=== PATIENT | female | born 1965 | race Caucasian/White ===

== ENCOUNTER → 2018-02-02 | Outpatient (REF) ==
[2018-02-02 10:27] LABS: THYROID STIMULATING HORMONE 1.64 uIU/mL (0.465-4.680)
== END ==
LOC: ZLAB.WCH 09:10
PROVIDERS: Nurse Practitioner Family
DX: Z01.89 Encounter for other specified special examinations (principal)

== ENCOUNTER 2024-04-22 13:30 | Inpatient (IN) | payer BC ==
[~2024-04-22] VITALS: Ht 160 cm; Wt 74.2 kg
[2024-04-22] VITALS (280 sets, daily range): BP systolic 129–156; BP diastolic 81–90; PULSE 112; TEMP 97.5; O2SAT 74–100
[2024-04-22] MEDS ORDERED: NS 1,000 ML IV ONE ×2 (14:15→16:15)
[2024-04-22 14:28] LABS: HEMOGLOBIN 16.7 g/dl (12.5-16.0); MEAN CELL VOLUME 92 fl (80.0-100.0); MEAN CORPUSCULAR HEMOGLOBIN 29 pg (27-31); MEAN CORPUSCULAR HGB CONC 32 g/dl (33.0-37.0); MEAN PLATELET VOLUME 9.1 fl (7.4-10.4); PLATELET COUNT 612 K/mm3 (130-400); RED BLOOD COUNT 5.75 M/mm3 (4.10-5.30); REDCELL DISTRIBUTION WIDTH-CV 13.3 % (11.5-14.5)
[2024-04-22] MEDS ORDERED: Ondansetron 4 MG/2 ML VIAL IV ONE (14:30)
[2024-04-22 14:40] LABS: HEMATOCRIT 52.6 % (37.0-47.0)
[2024-04-22 14:47] LABS: ALBUMIN 3.6 g/dL (3.4-4.8); BILIRUBIN,TOTAL 0.6 mg/dL (0.2-1.2); CALCIUM 9.8 mg/dL (8.4-10.2); CREATININE, serum 0.86 mg/dL (0.57-1.11); POTASSIUM 5.1 mEq/L (3.5-4.5)
[2024-04-22 14:55] LABS: TROPONIN-I 0.918 ng/mL (0.00-0.033)
[2024-04-22] MEDS ORDERED: Iohexol 300 - 100 ML VIAL IV ONE (14:55)
[2024-04-22 15:01] LABS: BAND 12 % (0-10); LYMPHOCYTE 7 % (20.0-51.0); NEUTROPHILS 79 % (42.0-75.2)
[2024-04-22 15:52] LABS: COLLECTION METHOD CLEAN CATCH; URINE APPEARANCE Clear (CLEAR/HAZY); URINE COLOR Yellow (YELLOW)
[2024-04-22 15:53] LABS: URINE BLOOD 3+ (NEGATIVE); URINE GLUCOSE 2+ (NEGATIVE); URINE KETONE 4+ (NEGATIVE); URINE NITRATE Negative (NEGATIVE); URINE PROTEIN(semi-quant) 2+ (NEGATIVE); URINE UROBILINOGEN 0.2 E.U/dL (0.2-1.0)
[2024-04-22 16:55] LABS: INR 1.1 (0.8-3.0); PROTHROMBIN TIME 12.1 SECONDS (9.7-12.8)
[2024-04-22 16:57] LABS: ALANINE AMINOTRANSFERASE 836 U/L (0-55); ALBUMIN 3.6 g/dL (3.4-4.8); ALKALINE PHOSPHATASE 64 U/L (40-150); AST,SGOT 582 U/L (5-34); BILIRUBIN,TOTAL 0.5 mg/dL (0.2-1.2); TOTAL PROTEIN 8.1 g/dl (6.2-8.1)
[2024-04-22 17:02] LABS: BILIRUBIN,DIRECT 0.3 mg/dL (0.0-0.5)
[2024-04-22] MEDS ORDERED: ZYRTEC 10MG10 MG PO (17:10)
[2024-04-22] MEDS ORDERED: OZEMPIC0.25 MG/02 SQ (17:11)
[2024-04-22] MEDS ORDERED: LIPITOR 40MG TA40 MG PO (17:11)
[2024-04-22] MEDS ORDERED: JARDIANCE25 PO (17:11)
[2024-04-22] MEDS ORDERED: Insulin Human Regular/NS 100 ML IV SCH (17:15)
[2024-04-22] MEDS ORDERED: Ondansetron 4 MG/2 ML VIAL IV PRN (17:15)
[2024-04-22] MEDS ORDERED: D5 1/2 NS 1,000 ML IV SCH ×2 (17:30→20:30)
[2024-04-22] MEDS ORDERED: NS 1,000 ML IV SCH ×2 (17:30→20:30)
--- NOTE | 2024-04-22 17:30 | NUR ---
Report received from MARION Gutierrez at 1705. Pt arrived to ICU room 1 at 1730 via ER cart with MARION Gutierrez at bedside. Monitors attached to pt during transfer. Pt transferred from ER cart to ICU bed via SBA. ICU monitors attached to pt at this time. VSS. Pt denies pain or discomfort. Pt complains of "feeling weak and slightly short of breath". IV insulin and fluids attached to pt at this time to L AC IV. Alyx RN, Asha RN, and this RN attemped to obtain a second IV site with no luck. Dr. Stanton notified and gave orders for a central line placement. Dr. Desouza called for central line insertion and stated he would be to ICU shortly to complete procedure. and two daughters at bedside with pt.
[2024-04-22] MEDS ORDERED: GLUCOPHAGE XR500 M1 PO (17:47)
[2024-04-22] MEDS ORDERED: Aspirin 325 MG TAB PO ONE (18:00)
[2024-04-22] MEDS ORDERED: Dextrose 50% Water 25 GM/50 ML SYRINGE IV PRN (18:00)
--- NOTE | 2024-04-22 20:00 | NUR ---
AT BEDSIDE PLACING A CENTRAL LINE. PT HAD A SHORT RUN OF V-TACH DURING PLACEMENT. DR WAS NOTIFIED. PT REMAINED STABLE. PT STATES SHE FEELS WEAK. FAMILY WAS AT BEDSIDE, BUT HAS GONE HOME FOR THE NIGHT. PT WAS AMBULATED WITH ASSIST OF 2 TO THE TOILET. PURWICK WAS PLACED UPON RETURN. DR ANDRADE WAS CALLED REGARDING BLOOD SUGAR AND CURRENT INSULIN RATE. THIS NURSE REQUESTED DOCTOR REVIEW CXR FOR CORRECT CENTRAL LINE PLACEMENT.
[2024-04-22 20:18] LABS: BLOOD UREA NITROGEN 15 mg/dL (10-20); CALCIUM 7.6 mg/dL (8.4-10.2); CHLORIDE 118 mEq/L (98-107); CREATININE, serum 0.76 mg/dL (0.57-1.11); GLUCOSE 269 mg/dL (70-99); POTASSIUM 4.1 mEq/L (3.5-4.5); SODIUM 139 mEq/L (136-145)
[2024-04-22] MEDS ORDERED: cefTRIAXone 1 G in Water For Injection,Sterile 10 ML IV SCH (21:00)
[2024-04-22] MEDS ORDERED: Acetaminophen 500 MG TAB PO PRN (21:00)
[2024-04-22 21:29] LABS: CALCIUM 7.3 mg/dL (8.4-10.2); CREATININE, serum 0.7 mg/dL (0.57-1.11); POTASSIUM 3.6 mEq/L (3.5-4.5)
[2024-04-22] MEDS ORDERED: *Potassium Replacement Protocol MC SCH (22:00)
[2024-04-22] MEDS ORDERED: Magnesium Sulfate 4% 50 ML IV ONE (22:15)
[2024-04-22] MEDS ORDERED: Potassium Chloride 100 ML IV SCH (22:30)
[2024-04-22 23:31] LABS: CALCIUM 7.5 mg/dL (8.4-10.2); CREATININE, serum 0.68 mg/dL (0.57-1.11); POTASSIUM 3.3 mEq/L (3.5-4.5)
[2024-04-23] VITALS (1062 sets, daily range): BP systolic 111–157; BP diastolic 68–90; PULSE 105–123; TEMP 97.4–98.2; O2SAT 94–100
[2024-04-23] MEDS ORDERED: Potassium Chloride 100 ML IV SCH ×3 (01:00→21:15)
[2024-04-23 01:38] LABS: CALCIUM 7.4 mg/dL (8.4-10.2); CREATININE, serum 0.62 mg/dL (0.57-1.11); POTASSIUM 3.6 mEq/L (3.5-4.5)
--- NOTE | 2024-04-23 03:16 | NUR ---
PT RECEIVED 12.5 GM D50 AT 0013, 0200 & 0315 FOR BLOOD SUGAR LESS THAT 150.
[2024-04-23 03:34] LABS: CALCIUM 7.4 mg/dL (8.4-10.2); CREATININE, serum 0.61 mg/dL (0.57-1.11); POTASSIUM 4.1 mEq/L (3.5-4.5)
--- NOTE | 2024-04-23 03:39 | NUR ---
THIRD BAG OF THE 60 mEq POTASSIUM STOPPED. LAST K+ WAS 4.1.
[2024-04-23 05:59] LABS: BASO % 0.2 % (0.0-2.0); EOS % 0.3 % (0.0-4.0); GRAN # 11.4 K/mm3 (1.4-6.5); GRAN % 82.6 % (42.2-75.2); HEMATOCRIT 38.8 % (37.0-47.0); LYMPH # 1.5 K/mm3 (1.2-3.4); MEAN CORPUSCULAR HGB CONC 34 g/dl (33.0-37.0); MEAN PLATELET VOLUME 8.6 fl (7.4-10.4); MONO # 0.8 K/mm3 (0.1-0.6); MONO % 5.5 % (1.7-9.3); RED BLOOD COUNT 4.51 M/mm3 (4.10-5.30); REDCELL DISTRIBUTION WIDTH-CV 13.5 % (11.5-14.5)
[2024-04-23 06:01] LABS: HEMOGLOBIN 13.1 g/dl (12.5-16.0); MEAN CELL VOLUME 86 fl (80.0-100.0); MEAN CORPUSCULAR HEMOGLOBIN 29 pg (27-31); PLATELET COUNT 374 K/mm3 (130-400)
[2024-04-23 06:33] LABS: BILIRUBIN,TOTAL 0.3 mg/dL (0.2-1.2); MAGNESIUM 1.9 mg/dL (1.6-2.6)
[2024-04-23 06:42] LABS: TSH w REFLEX 4.485 uIU/mL (0.350-4.940)
[2024-04-23 07:02] LABS: TROPONIN-I 0.526 ng/mL (0.00-0.033)
[2024-04-23 07:05] LABS: CALCIUM 7.6 mg/dL (8.4-10.2); CREATININE, serum 0.63 mg/dL (0.57-1.11); POTASSIUM 3.8 mEq/L (3.5-4.5)
--- NOTE | 2024-04-23 07:05 | NUR ---
REMAINS STABLE ON ROUNDS. NO SIGN OF DISTRESS AT THIS TIME.
[2024-04-23 07:27] LABS: CALCIUM 7.7 mg/dL (8.4-10.2); CREATININE, serum 0.62 mg/dL (0.57-1.11); POTASSIUM 3.7 mEq/L (3.5-4.5)
--- NOTE | 2024-04-23 07:35 | NUR ---
THIS NURSE RECIEVED BEDSIDE REPORT. PATIENT STARING OFF, BUT ALERT AND ORIENTED. PATIENT HAS INSULIN INFUSING AT 4 UNITS PER HOUR. PATIENT RESTING COMFORTABLY. IV FLUIDS INFUSING PER DOCTORS ORDERS. BED IN LOW POSITION AND CALL LIGHT WITHIN REACH.
[2024-04-23] MEDS ORDERED: Cetirizine 10 MG TAB PO SCH (09:00)
[2024-04-23 09:40] LABS: CALCIUM 7.9 mg/dL (8.4-10.2); CREATININE, serum 0.59 mg/dL (0.57-1.11); POTASSIUM 4.1 mEq/L (3.5-4.5)
[2024-04-23] MEDS ORDERED: Polyethylene Glycol 3350 17 GM PDS PO SCH (11:14)
[2024-04-23] MEDS ORDERED: Insulin Glargine-ygfn (Lantus) SQ SCH ×2 (11:19→21:00)
[2024-04-23] MEDS ORDERED: Dextrose 50% Water 25 GM/50 ML SYRINGE IV PRN (11:30)
[2024-04-23] MEDS ORDERED: Dextrose (Glucose) 15 GM (4 x 3.75 GM) Chewable TABLET PACK PO PRN (11:30)
[2024-04-23] MEDS ORDERED: LR 1,000 ML IV SCH (11:30)
[2024-04-23] MEDS ORDERED: Glucagon 1 MG VIAL IM PRN (11:30)
[2024-04-23 11:48] LABS: CALCIUM 7.8 mg/dL (8.4-10.2); CREATININE, serum 0.6 mg/dL (0.57-1.11)
--- NOTE | 2024-04-23 11:56 | NUR ---
Data: Spiritual Care visit attempted twice. First time Doctor was with Patient and Visitor. Second Patient was indisposed. Assessment: None at this time. Plan of Care: Chaplains will remain available as needed/requested while Patient is admitted to this hospital.
[2024-04-23] MEDS ORDERED: Insulin Lispro (HumaLOG) SQ SCH (12:00)
--- NOTE | 2024-04-23 14:06 | NUR ---
INSULIN DRIP SHUT OFF AT THIS TIME, FOLLOWING TWO HOURS SINCE ADMINISTRATION OF LONG-ACTING INSULIN AND DOCTORS ORDERS. PATIENT TOLERATING TREATMENT WELL. RESTING COMFORTABLY WITH BED IN LOW POSITION AND CALL LIGHT WITHIN REACH.
--- NOTE | 2024-04-23 15:43 | NUR ---
SW met with patient to complete initial assessment for discharge planning. Patient verified that she lives in [place] with her Matthew ([phone]). Patient denies having DPOA completed and states her will make decisions for her if needed. Patient sees Dr. Anila Craft as her PCP and uses [facility]. Patient denies having any DME and states she is independent with all activities. Patient plans to return home at discharge. Discharge plan: Home
--- NOTE | 2024-04-23 16:16 | NUR ---
PATIENT HAS BEEN STRESSING OVER NOT HAVING A BOWEL MOVEMENT. TALKED TO DR. POWELL WHILE SHE WAS MAKING ROUNDS AND ASKED FOR MIRALAX AND COLACE. PATIENT HAD A DOSE OF MIRALAX AROUND 1200, AND HAD A SMALL AMOUNT OF BOWEL MOVEMENT AT THIS TIME. PATIENT EXPRESSED A SENSE OF RELIEF AND IS GOING TO TRY TO NAP. BED IS IN LOW POSITION AND CALL LIGHT IS WITHIN REACH.
[2024-04-23 16:18] LABS: CALCIUM 8.4 mg/dL (8.4-10.2); CREATININE, serum 0.55 mg/dL (0.57-1.11)
--- NOTE | 2024-04-23 19:00 | NUR ---
AND DAUGHTER AT THE BEDSIDE. PT IS WATCHING THE [employer] PRESEASON GAME. DENIES SOB, PAIN, N/V. STATES SHE FEELS BETTER TODAY. ASKED PT IF SHE WOULD LIKE TO SIT IN THE CHAIR. PT DECLINED. STATES SHE DOESN'T THINK SHE WOULD BE COMFORTABLE. NO SIGN OF DISTRESS AT THIS TIME. RESPIRATIONS EVEN AND UNLABORED. CONTINUE PLAN OF CARE.
--- NOTE | 2024-04-23 19:06 | NUR ---
PATIENT IS ALERT AND ORIENTED X4. PATIENT'S AND DAUGHTER ARE IN THE ROOM. PATIENT IS RESTING COMFORTABLY. PATIENT ONLY ATE ABOUT 30% OF HER DINNER TONIGHT. PATIENT HAS BEEN TO THE TOILET MULTIPLE TIMES, WITH ONLY ONE SMALL BOWEL MOVEMENT AT THIS TIME. PATIENT WAS STRESSING OVER THE FACT OF NOT HAVING A BOWEL MOVEMENT. PATIENT REASSURED THAT THIS IS NORMAL, AND THAT SHE HAS MEDICATION ON BOARD THAT SHOULD START TO HELP, BUT SHE HAS TO EAT THINGS, TO BE ABLE TO PASS A BOWEL MOVEMENT, EFFECTIVELY. PATIENT IN BED, BED IN LOW POSITION, CALL LIGHT WITHIN REACH. GAVE REPORT TO MARION HAMPTON.
[2024-04-23 20:40] LABS: CALCIUM 8.5 mg/dL (8.4-10.2); CREATININE, serum 0.54 mg/dL (0.57-1.11); POTASSIUM 3.7 mEq/L (3.5-4.5)
[2024-04-23] MEDS ORDERED: Docusate Sodium 100 MG CAP PO SCH (21:00)
--- NOTE | 2024-04-23 21:25 | NUR ---
PT AMBULATED IN THE [place] WITH ASSIST OF 1 AND GAIT BELT. PT WENT TO THE NURSES STATION AND BACK. PT HAS A WEAK GAIT. PT HAS GENERALIZED WEAKNESS. PT HAS A CATARACT ON RIGHT EYE. PT STATES SHE CAN NOT SEE OUT OF THAT EYE. CO2 IS 12. ORDER IN PLACE NOT TO CALL UNLESS TRENDING DOWN. K+ 3.7. WILL REPLACE.
[2024-04-24] VITALS (551 sets, daily range): BP systolic 107–167; BP diastolic 71–110; PULSE 111–126; TEMP 97.6–98.7; O2SAT 87–99
--- NOTE | 2024-04-24 00:56 | NUR ---
PT C/O FILLING LIKE SHE HAS TO URINATE ALL THE TIME. PT HAS URINATED 1100 ML THIS SHIFT. BLADDER PALPATED AND WAS FIRM. BLADDER SCAN PERFORMED. INDICATED GREATER THAT 900 ML. PROVIDER CONTACTED AND ORDER FOR STRAIGHT CATH RECEIVED. CATH PLACED. PT INDICATED SHE FELT MUCH BETTER.
[2024-04-24 04:38] LABS: CALCIUM 8.5 mg/dL (8.4-10.2); CREATININE, serum 0.47 mg/dL (0.57-1.11); POTASSIUM 3.9 mEq/L (3.5-4.5)
--- NOTE | 2024-04-24 05:14 | NUR ---
PT HAS URINARY RETENTION. CATH WAS PLACED OVERNIGHT. LEFT IN PLACE FOR BLADDER TRAINING. TUBING CLAMPED FOR 2 HOURS AT A TIME. THEN UNCLAMPED TO DRAIN. WILL DISCONTINUE AT 0600.
--- NOTE | 2024-04-24 06:33 | NUR ---
URINARY CATH REMOVED WITH OUT INCIDENT. PROVIDER NOTIFIED THAT PT HAD URINARY RETENTION AND WAS BLADDER TRAINED OVERNIGHT. RESPIRATIONS EVEN AND UNLABORED. PT IS ST 100 TO 120'S. PT HAS SLEEP APNEA. BLOOD PRESSURE WAS ELEVATED PRIOR TO URINARY CATH PLACEMENT. DISCUSSED WITH PROVIDER THAT PT HAS POOR COORDINATION. PER PROVIDER WILL PLACE ADD ON LAB FOR A PHOSPHORUS LEVEL.
--- NOTE | 2024-04-24 07:22 | NUR ---
THIS NURSE RECIEVED BEDSIDE REPORT. PATIENT RESTING COMFORTABLY. BED IN LOW POSITION AND CALL LIGHT WITHIN REACH.
[2024-04-24 09:12] LABS: CALCIUM 8.5 mg/dL (8.4-10.2); CREATININE, serum 0.47 mg/dL (0.57-1.11); POTASSIUM 3.8 mEq/L (3.5-4.5)
--- NOTE | 2024-04-24 10:14 | NUR ---
PATIENT USED THE RESTROOM AND ONLY VOIDED ABOUT 70 MLS. THIS NURSE BLADDER SCANNED POST VOID, AND BLADDER SCAN SHOWED APPROXMATELY 500 ML LEFT IN THE PAITENT'S BLADDER. PATIENT'S ABDOMEN IS SOFT UPON PALPATION WITH NO TENDERNESS. PATIENT STATES SHE WILL CALL IF THE URGE TO VOID OCCURS, OR IF PAIN BEGINS IN THE ABDOMEN. BED IN LOW POSITION, CALL LIGHT WITHIN REACH.
[2024-04-24] MEDS ORDERED: Potassium Bicarbonate/Citrate 20 MEQ Effervescent TAB PO ONE (10:45)
--- NOTE | 2024-04-24 11:55 | NUR ---
LATIA revisited patient to inquire about self pay status on chart. Patient states that she just changed jobs and her insurance terminated. She states that her added her to his policy on Thursday with [employer]. LATIA sent email to financial counselor to follow up on this coverage. LATIA notified by Dr. Yoon that patient will require rehab before going home. LATIA discussed with patient who is agreeable. Medicare.gov list of area SNFs provided. Patient requested referral to [facility], [facility] faxed per request. Discharge plan: SB vs SNF
[2024-04-24 12:39] LABS: CALCIUM 8.5 mg/dL (8.4-10.2); CREATININE, serum 0.45 mg/dL (0.57-1.11); POTASSIUM 3.6 mEq/L (3.5-4.5)
[2024-04-24 16:34] LABS: CALCIUM 8.5 mg/dL (8.4-10.2); CREATININE, serum 0.45 mg/dL (0.57-1.11); POTASSIUM 3.6 mEq/L (3.5-4.5)
--- NOTE | 2024-04-24 18:42 | NUR ---
PATIENT IS RESTING COMFORTABLY IN HER BED. PATIENT HAD NEW LINENS PLACED AND A CLEAN GOWN PUT ON. PATIENT IS SHOWING GREAT STRENGTH IMPROVEMENT FROM YESTERDAY. PATIENT STABLY WALKING TO THE TOILET AND BACK. PATIENT HAS SCDS HOOKED UP, BED IS IN LOW POSITION, AND CALL LIGHT IS WITHIN REACH.
--- NOTE | 2024-04-24 19:42 | NUR ---
PT STATES SHE FEELS LIKE SHE IS EMPTYING HER BLADDER. PT STATES SHE DOES NOT WANT ANYMORE STOOL SOFTENERS. PT VOIDED 100 ML AND HAD A MED LOOSE BM. PT AMBULATED 100 YARDS WITH FRONT WHEEL WALKER AND GAIT BELT. PT STATES SHE FEELS WEAK AND TIRED. PT WILL BE NPO AFTER MN FOR CORNELL SCAN IN MORNING.
--- NOTE | 2024-04-24 20:00 | NUR ---
PT UP VOIDING. WILL BLADDER SCAN AFTER TO EVALUATE FOR URINARY RETENTION.
--- NOTE | 2024-04-24 20:18 | NUR ---
PT HAS VOIDED 100 ML X2 THIS SHIFT. POST VOID RESIDUAL PERFORMED. PT HAS GREATER THAT 800ML IN BLADDER. PROVIDER CALLED. ORDER TO PLACE WARD RECEIVED. 16 FR WARD WITH 10 ML BALOON PLACED. PT TOLERATED PROCEDURE WELL. IMMEDIATE RETURN OF CLEAR YELLOW URINE.
[2024-04-24 20:30] LABS: CALCIUM 8.6 mg/dL (8.4-10.2); CREATININE, serum 0.49 mg/dL (0.57-1.11); POTASSIUM 3.4 mEq/L (3.5-4.5)
[2024-04-25] VITALS (37 sets, daily range): BP systolic 106–149; BP diastolic 69–85; PULSE 80–128; TEMP 97.6–98.1; O2SAT 92–97
[2024-04-25 04:41] LABS: BASO # 0.1 K/mm3 (0.0-0.2); BASO % 0.9 % (0.0-2.0); EOS # 0.2 K/mm3 (0.0-0.7); EOS % 2.1 % (0.0-4.0); GRAN # 5.2 K/mm3 (1.4-6.5); GRAN % 64.8 % (42.2-75.2); HEMATOCRIT 37.5 % (37.0-47.0); HEMOGLOBIN 12.8 g/dl (12.5-16.0); LYMPH # 2.1 K/mm3 (1.2-3.4); LYMPH % 25.5 % (20.0-51.0); MEAN CELL VOLUME 84 fl (80.0-100.0); MEAN CORPUSCULAR HEMOGLOBIN 29 pg (27-31); MEAN CORPUSCULAR HGB CONC 34 g/dl (33.0-37.0); MEAN PLATELET VOLUME 8.8 fl (7.4-10.4); MONO # 0.5 K/mm3 (0.1-0.6); MONO % 6.5 % (1.7-9.3); PLATELET COUNT 310 K/mm3 (130-400); RED BLOOD COUNT 4.46 M/mm3 (4.10-5.30); REDCELL DISTRIBUTION WIDTH-CV 13.5 % (11.5-14.5)
--- NOTE | 2024-04-25 04:57 | NUR ---
PT IS GOING FOR A PROCEDURE THIS MORNING. PROTONIX GIVEN EARLY WITH A SIP OF WATER. PT BG POC WAS 71. PT FELT LIKE HER BLOOD SUGAR WAS A LITTLE LOW. GIVEN 12.5 GM OF D50.
[2024-04-25 05:28] LABS: CALCIUM 8.5 mg/dL (8.4-10.2); CREATININE, serum 0.44 mg/dL (0.57-1.11); POTASSIUM 3.2 mEq/L (3.5-4.5)
[2024-04-25] MEDS ORDERED: Potassium Chloride 100 ML IV SCH (06:30)
--- NOTE | 2024-04-25 06:37 | NUR ---
POTASSIUM 3.2 THIS MORNING. REPLACEMENT IN PROGRESS. PT'S BLOOD SUGAR WNL ON RECHECK. PT NPO SINCE MIDNGHT FOR CORNELL SCAN TODAY. REMAINS STABLE ON ROUNDS. RESPIRATIONS EVEN AND UNLABORED. NO SIGN OF DISTRESS AT THIS TIME. CONTINUE PLAN OF CARE.
--- NOTE | 2024-04-25 07:10 | NUR ---
THIS NURSE RECIEVED REPORT FROM MARION HAMPTON. PATIENT IS RESTING COMFORTABLY IN BED. PATIENT BE PREPPED TO GO DOWN FOR A LEXISCAN AT THIS TIME.
[2024-04-25] MEDS ORDERED: Insulin Glargine-ygfn (Lantus) SQ SCH (09:00)
--- NOTE | 2024-04-25 09:35 | NUR ---
DR. ARANGO TALKING TO PATIENT AFTER ECHO. TRANSPORTATION TO THE [facility] ARRIVED DURING THIS CONVERSATION. PATIENT THEN TRANSPORTED TO HER SCAN. BED RECIEVED FOR PATIENT UP ON MEDICAL. PATIENT AWARE. REPORT CALLED TO 319 NURSE. PATIENT'S BELONGINGS TAKEN UP TO NEW ROOM.
[2024-04-25] MEDS ORDERED: Regadenoson 0.08 MG/ML 5 ML SYRINGE IV SCH (09:58)
--- NOTE | 2024-04-25 10:30 | NUR ---
PATIENT ADMITED INTO ROOM 319, ICU TRANSFER. A&O. NOTED ELEVATED HR IN MID 100'S TO 120'S ON TELE, ALL OTHER VSS. IV FLUIDS INFUSING INTO RIJ. WARD TO DD WITH MOD AMOUNTS OF HAZY URINE NOTED. PATIENT HAS IMPAIRED MOBILITY AND REQUIRES 1-2 ASSIST. PT/OT CONSULTED. NPO FOR LEXISCAN THAT PATIENT JUST FINISHED. BS WAS 82, NO SSI REQUIRED. HEAD TO TOE ASSESSMENT COMPLETE. ORIENTED TO ROOM. CALL LIGHT IN REACH. NOW AT BEDSIDE.
--- NOTE | 2024-04-25 11:10 | NUR ---
CARDIOLOGY CALLED AND CONFIRMED PATIENT CAN NOW HAVE AN AHA DIET, PATIENT SHOWN HOW TO ORDER. NO OTHER NEEDS AT THIS TIME.
--- NOTE | 2024-04-25 14:00 | NUR ---
PATIENT AMBULATING IN HALLS WITH PT. TOLERATING ACTIVITY WELL. SEE PT NOTES.
--- NOTE | 2024-04-25 20:30 | NUR ---
UPON SHIFT ASSESSMENT, PATIENT WAS AWAKE IN BED AND AXO X4. BG HAVE BEEN WNL AND WARD IS DRAINING PALE-YELLOW, CLEAR URINE. VS ARE WNL WITH THE EXCEPTION OF TELE EXHIBITING SINUS TACK AT 98 BPM. PATIENT DENIES CHEST PAIN OR SOA AT THIS TIME RT IJ IS CDI WITH TRIPLE LUMENS THAT FLUSH AND HAVE BLOOD RETURN. STATES NO NEEDS AT THIS TIME. EDUCATION WAS PROVIDED ON SIGNG AND SYMPTOMS OF HYPOGYLCEMIA, CALL LIGHT WITHIN REACH, BED ALARM ON.
[2024-04-26] VITALS (11 sets, daily range): BP systolic 112–124; BP diastolic 56–78; PULSE 94–103; TEMP 97.4–97.9
--- NOTE | 2024-04-26 06:41 | NUR ---
PATIENT HAS HAD NO EMERGENT STATUS CHANGES THROUGHOUT THE NIGHT. SHE REMAINS SINUS TACH ON TELE @ 99 BPM. BLOOD GLUCOSE HAS BEEN WNL. PATIENT DENIES ANY NEEDS AT THIS TIME.
[2024-04-26 07:05] LABS: BASO # 0.1 K/mm3 (0.0-0.2); BASO % 0.6 % (0.0-2.0); EOS # 0.2 K/mm3 (0.0-0.7); EOS % 2.3 % (0.0-4.0); GRAN # 5.2 K/mm3 (1.4-6.5); GRAN % 66.4 % (42.2-75.2); HEMATOCRIT 37.4 % (37.0-47.0); HEMOGLOBIN 12.7 g/dl (12.5-16.0); LYMPH # 1.9 K/mm3 (1.2-3.4); LYMPH % 24.5 % (20.0-51.0); MEAN CELL VOLUME 86 fl (80.0-100.0); MEAN CORPUSCULAR HEMOGLOBIN 29 pg (27-31); MEAN CORPUSCULAR HGB CONC 34 g/dl (33.0-37.0); MEAN PLATELET VOLUME 9.2 fl (7.4-10.4); MONO # 0.5 K/mm3 (0.1-0.6); MONO % 5.9 % (1.7-9.3); PLATELET COUNT 287 K/mm3 (130-400); RED BLOOD COUNT 4.35 M/mm3 (4.10-5.30); REDCELL DISTRIBUTION WIDTH-CV 13.4 % (11.5-14.5)
[2024-04-26 07:30] LABS: CALCIUM 8.5 mg/dL (8.4-10.2); POTASSIUM 3.4 mEq/L (3.5-4.5)
[2024-04-26 07:42] LABS: CREATININE, serum 0.4 mg/dL (0.57-1.11)
[2024-04-26] MEDS ORDERED: Potassium Bicarbonate/Citrate 20 MEQ Effervescent TAB PO SCH (08:00)
--- NOTE | 2024-04-26 08:15 | NUR ---
PT ALERT AND RESTING IN BED. MEDS GIVEN PER ORDER. HEAD TO TOE ASSESSMENT COMPLETE. CENTRAL LINE TO RIGHT IJ. URINE OUTPUT IN WARD BAG LIGHT PINK AND CLEAR. PT STATES SHE HAS SEVERE WEAKNESS AND INCREADING NECK WEAKNESS. PT IS LEGALLY BLIND IN LEFT EYE. PT DENIES ANY PAIN. ALL ITEMS WITHIN REACH. REPOSITIONED IN BED. CALL LIGHT WITHIN REACH. NO FURTHER NEEDS.
--- NOTE | 2024-04-26 11:19 | NUR ---
Clinical Research Physician met with patient to review PT recommendation for IPR. Patient stated she would prefer to stay here on IPR if possible. SW contacted Rachel, IPR Director and gave referral.
--- NOTE | 2024-04-26 13:56 | NUR ---
D: Population Health Coach stopped in room on rounds. A: Pt was resting and content with family and friends in the room. Pt has no needs right now. P: Population Health Coach informed pt that if she needed anything from the collar band creaser area to let her nurse know. Population Health Coach will follow up as needed.
--- NOTE | 2024-04-26 21:00 | NUR ---
UPON SHIFT ASSESSMENT, PATIENT WAS AWAKE IN BED AND AXO X4. WARD DRAINING PALE YELLOW. PATIENT DENIES PAIN OR SOA AT THIS TIME. VS ARE WNL WITH EXCEPTION OF SINUS TACH AT 102 BPM ON TELE. BLOOD GLUCOSE WNL. PATIENT EAGERLY ANTICIPATES REHAB AND WANTS TO, "BE ABLE TO GET UP ON MY OWN."
[2024-04-27 01:00] VITALS: BP_SYST 124
[2024-04-27 03:20] VITALS: BP 105/70; PULSE 93; TEMP 97.7
[2024-04-27 06:14] VITALS: BP_SYST 105
[2024-04-27 06:41] LABS: BASO # 0.1 K/mm3 (0.0-0.2); BASO % 0.8 % (0.0-2.0); EOS # 0.1 K/mm3 (0.0-0.7); EOS % 1.8 % (0.0-4.0); GRAN # 4.9 K/mm3 (1.4-6.5); GRAN % 63.3 % (42.2-75.2); HEMATOCRIT 37.6 % (37.0-47.0); HEMOGLOBIN 12.6 g/dl (12.5-16.0); LYMPH # 2.2 K/mm3 (1.2-3.4); MEAN CELL VOLUME 87 fl (80.0-100.0); MEAN CORPUSCULAR HEMOGLOBIN 29 pg (27-31); MEAN CORPUSCULAR HGB CONC 34 g/dl (33.0-37.0); MONO # 0.5 K/mm3 (0.1-0.6); PLATELET COUNT 308 K/mm3 (130-400); RED BLOOD COUNT 4.31 M/mm3 (4.10-5.30); REDCELL DISTRIBUTION WIDTH-CV 13.5 % (11.5-14.5)
[2024-04-27 06:59] LABS: CALCIUM 8.5 mg/dL (8.4-10.2); CREATININE, serum 0.41 mg/dL (0.57-1.11); POTASSIUM 3.5 mEq/L (3.5-4.5)
[2024-04-27 07:34] VITALS: BP 112/74; PULSE 95; TEMP 98
--- NOTE | 2024-04-27 08:30 | NUR ---
PATIENT ALERT AND ORIENTED X4. PATIENT ON ROOM AIR. PATIENT ON TELEMETRY.PATIENT WARD DRAINING DEVENDRA COLOR URINE. PATIENT REPORTS WEAKNESS IS STILL IN ABDOMEN AND GROIN.PATIENT CALL LIGHT WITHIN REACH. BED AT LOWEST POSITION.
[2024-04-27 09:00] VITALS: BP_SYST 112
[2024-04-27] MEDS ORDERED: Insulin Glargine-ygfn (Lantus) SQ SCH (09:00)
[2024-04-27] MEDS ORDERED: TOPROL XL 25MG25 MG PO (09:15)
[2024-04-27] MEDS ORDERED: ASPIRIN E.C. 8181 MG PO (09:16)
[2024-04-27] MEDS ORDERED: INSLANT SQ (09:16)
[2024-04-27] MEDS ORDERED: INSULIN AS100 UNIT/2 SQ (09:17)
--- NOTE | 2024-04-27 10:52 | NUR ---
PATIENT TRANSPORTED TO [facility]. TELE STILL INPLACE. WARD INPLACE. PATIENT REPORT GIVEN TO NURSE RECEIVING PATIENT.
--- NOTE | 2024-04-27 13:32 | NUR ---
Patient accepted to [facility] and will discharge today.
== END 2024-04-27 10:53 | DRG 637 ==
LOC: COL.ER 13:30 → ICU 16:30 → COL.ER 16:30 → MEDICAL 16:30 → ICU 04-25 10:27 → MEDICAL 04-25 10:27
PROVIDERS: Internal Medicine; Physician Assistant; ADMIT Internal Medicine
PROC: 02HV33Z Insertion of Infusion Device into Superior Vena Cava, Percutaneous Approach (ICD-10-PCS; principal; 2024-04-22)
DX: E09.10 Drug or chemical induced diabetes mellitus with ketoacidosis without coma (principal); I21.A1 Myocardial infarction type 2; G72.81 Critical illness myopathy; M62.82 Rhabdomyolysis; B17.9 Acute viral hepatitis, unspecified; E87.5 Hyperkalemia; D72.829 Elevated white blood cell count, unspecified; R74.01 Elevation of levels of liver transaminase levels; T50.905A Adverse effect of unspecified drugs, medicaments and biological substances, initial encounter; R33.9 Retention of urine, unspecified; E78.5 Hyperlipidemia, unspecified; Z79.899 Other long term (current) drug therapy
CPT/HCPCS: A4314; A9500-JZ; J0696; J1815; J2405; J2543; J2785; J3475; J3480; J7030; J7120; Q9967

== ENCOUNTER 2024-04-27 08:47 | Inpatient (IN) | payer BC ==
[~2024-04-27] VITALS: Ht 160 cm; Wt 71.7 kg
[~2024-04-27 08:47] MED LIST: GLUCOPHAGE XR500 M1 PO; JARDIANCE25 PO; LIPITOR 40MG TA40 MG PO; OZEMPIC0.25 MG/02 SQ; ZYRTEC 10MG10 MG PO
[2024-04-27] MEDS ORDERED: TOPROL XL 25MG25 MG PO (09:15)
[2024-04-27] MEDS ORDERED: INSLANT SQ (09:16)
[2024-04-27] MEDS ORDERED: ASPIRIN E.C. 8181 MG PO (09:16)
[2024-04-27] MEDS ORDERED: INSULIN AS100 UNIT/2 SQ (09:17)
[2024-04-27] MEDS ORDERED: Acetaminophen 325 MG TAB PO PRN (11:15)
[2024-04-27] MEDS ORDERED: Naloxone 0.4 MG/ML VIAL IV PRN (11:15)
[2024-04-27] MEDS ORDERED: Docusate Sodium 100 MG CAP PO PRN (11:15)
[2024-04-27] MEDS ORDERED: Sennosides/Docusate 8.6-50 MG TAB PO PRN (11:15)
[2024-04-27] MEDS ORDERED: Polyethylene Glycol 3350 17 GM PDS PO PRN (11:15)
[2024-04-27] MEDS ORDERED: Glucagon 1 MG VIAL IM PRN (12:00)
[2024-04-27] MEDS ORDERED: Dextrose (Glucose) 15 GM (4 x 3.75 GM) Chewable TABLET PACK PO PRN (12:00)
[2024-04-27] MEDS ORDERED: Dextrose 50% Water 25 GM/50 ML SYRINGE IV PRN (12:00)
[2024-04-27] MEDS ORDERED: Insulin Lispro (HumaLOG) SQ SCH (12:00)
--- NOTE | 2024-04-27 14:35 | NUR ---
LATIA met with patient, and daughter to complete initial assessment for discharge planning. Patient finishing getting a shower with OT, LATIA visited with family. Patient lives with Matthew ([phone]) in [place], sees Dr. Anila Craft as her PCP and uses [facility] [facility]. Patient does not have any DME at home. stated there are two steps into home from their garage and rest of home is one level. Patient's office is in basement, but states they will relocate it to main floor as patient works remotely at times. Discussed IPR process to include team meetings, family meeting and plan for discharge needs which may include OP therapy or home health therapy. SW will continue to follow. Discharge plan: re-eval
--- NOTE | 2024-04-27 16:54 | NUR ---
PER DR. TABOR'S ORDER, RIJ TO BE LEFT IN UNTIL NEUROLOGY HAS SEEN PATIENT TO HELP WITH LAB DRAWS OR ORDERS. PATIENT BROUGHT TO UNIT AT APPROXIMATELY 1040. PATIENT DENIES ANY PAIN. WARD DC'D AT 1100. PATIENT HAD NOT VOIDED AT 1420. BLADDER SCAN REVEALED 70ML URINE. SHARONA NOTIFIED. PATIENT TO AMBULATE TO BATHROOM TO ATTEMPT TO VOID. IF NO LUCK, INTERMITTENT CATHETERIZATION TO BE PERFORMED TO DECOMPRESS BLADDER. PATIENT AWARE OF PLANS THIS IS THE THIRD VOID TRIAL WITH A WARD CATHETER FOR ENTIRE STAY AT HOSPITAL. PATIENT LYING IN BED. NO FURTHER NEEDS. CALL LIGHT IN REACH.
[2024-04-27 17:56] VITALS: BP 107/69; PULSE 95; TEMP 98.3
--- NOTE | 2024-04-27 18:25 | NUR ---
ATTEMPTED TO STRAIGHT CATH PATIENT, TELEHEALTH CONSULT FOR NEURO CAME INTO ROOM. WILL ATTEMPT ONCE AGAIN BEFORE SHIFT CHANGE.
--- NOTE | 2024-04-27 20:50 | NUR ---
Pt lying in bed watching tv upon this nurse's entry to room. A&Ox4. Blood sugar level checked and is at 109. No insulin required from ss at this time. Lantus 15units administered to LLQ Abd. Shift assessment performed. RR even and unlabored. No acute distress present. Pt has been having some urinary retention. Bladder scan performed 20ml present in bladder. Pt denies any urinary discomfort at this time. Pt also denies SOA, lightheadedness, dizziness, nausea, or pain. No needs or concerns voiced by pt. Call light in reach. Care ongoing.
[2024-04-27] MEDS ORDERED: Insulin Glargine-ygfn (Lantus) SQ SCH (21:00)
--- NOTE | 2024-04-28 04:08 | NUR ---
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 Pt assisted to bathroom utilizing gait belt, walker, and x1 assist. Void is 100ml of dark yellow urine. Bladder scan performed to check for post residual per physician orders. 699mL of residual urine scanned in bladder. Per physician orders, intermittent straight cath to be performed. Pt informed and agreeable. Pericare provided w/ periwipes. Pt prepared utilizing sterile technique. Intermittent catheterization performed successfully x1 attempt. 700mL of dark yellow urine obtained from catheterization. Pt denies any discomfort or concerns. Call light in reach. Care ongoing.
[2024-04-28 06:00] VITALS: BP 145/74; PULSE 96; TEMP 97.7
--- NOTE | 2024-04-28 07:32 | NUR ---
Blood glucose st 67. Pt. eating breakfast at this time.
--- NOTE | 2024-04-28 08:20 | NUR ---
Pt. sitting up in bed. Pt. is A&OX3, assessment complete. TLC to RT. IJ patent. Pt. denies pain or other needs, call light within reach.
[2024-04-28] MEDS ORDERED: Insulin Glargine-ygfn (Lantus) SQ SCH (09:00)
[2024-04-28 16:37] VITALS: BP 112/76; PULSE 98; TEMP 97.9
--- NOTE | 2024-04-28 20:30 | NUR ---
UPON SHIFT ASSESSMENT, MELINDA WAS AWAKE IN BED AND AXO X4. SHE STILL EXHIBITS CORE STRENGTH WEAKNESS AND HAS NOT BEEN ABLE TO URINATE ON HER OWN. RT IJ STILL INTACT AND HAS SCANT DRIED BLOOD-TO BE PULLED IN THE AM FOLLOWING MORNING LABS. VS ARE WNL WITH EXCEPTION OF APICAL PULSE- 105 BPM. PATIENT DENIES PAIN OR SOA AT THIS TIME. ENCOURAGE COUGH AND DEEP BREATH. CALL LIGHT WITHIN REACH BEDALARM ON.
--- NOTE | 2024-04-28 20:41 | NUR ---
Straight cathed 245ml. Performed thorough percare prior as patient had copious loose stools in vaginal area.
--- NOTE | 2024-04-29 05:00 | NUR ---
BLADDER SCANNED PATIENT 725MLS NOTED. STRAIGHT CATHED AND REMOVED 675 ML DEVENDRA URINE. CONTINUED TO ENCOURAGE PATIENT TO DRINK MORE WATER.
[2024-04-29 05:50] VITALS: BP 123/78; PULSE 90; TEMP 97.4
[2024-04-29 06:42] LABS: BASO % 0.6 % (0.0-2.0); EOS # 0.2 K/mm3 (0.0-0.7); EOS % 2.6 % (0.0-4.0); GRAN # 4.3 K/mm3 (1.4-6.5); HEMATOCRIT 37.8 % (37.0-47.0); HEMOGLOBIN 12.8 g/dl (12.5-16.0); LYMPH # 1.9 K/mm3 (1.2-3.4); LYMPH % 27.4 % (20.0-51.0); MEAN CELL VOLUME 86 fl (80.0-100.0); MEAN CORPUSCULAR HEMOGLOBIN 29 pg (27-31); MEAN CORPUSCULAR HGB CONC 34 g/dl (33.0-37.0); MEAN PLATELET VOLUME 8.9 fl (7.4-10.4); MONO # 0.5 K/mm3 (0.1-0.6); MONO % 7.1 % (1.7-9.3); PLATELET COUNT 302 K/mm3 (130-400); REDCELL DISTRIBUTION WIDTH-CV 13.3 % (11.5-14.5)
[2024-04-29 07:18] LABS: ALBUMIN 2.1 g/dL (3.4-4.8); BILIRUBIN,TOTAL 0.4 mg/dL (0.2-1.2); CALCIUM 8.3 mg/dL (8.4-10.2); CREATININE, serum 0.44 mg/dL (0.57-1.11); POTASSIUM 3.3 mEq/L (3.5-4.5); TOTAL PROTEIN 4.7 g/dl (6.2-8.1)
--- NOTE | 2024-04-29 08:00 | NUR ---
Patient is A&O x4. VSS. No c/o pain or n/v. Patient is assist x1 for transfers and ADLs. Patient ambulates with gait belt and walker. R IJ is patent and draining. Dressing is clean, dry, and intact. Patient eating breakfast. Shift assessment done. Morning medications administered. Patient aware of therapy schedule for the day.
--- NOTE | 2024-04-29 10:30 | NUR ---
BLADDER SCANNED PATIENT AND FOUND 337mL OF URINE RETAINED IN BLADDER. ATTEMPTED TO STRAIGHT CATH PATIENT AND ATTEMPT WAS UNSUCCESSFUL. ANOTHER NURSE ATTEMPTED TO STRAIGHT CATH THE PATIENT AND WAS ALSO UNSUCCESSFUL. TALKED WITH DR TABOR ABOUT PLACING ANOTHER WARD CATHETER AND HE TALKED TO PATIENT ABOUT IT. PLANNING TO PLACE WARD CATHETER.
[2024-04-29] MEDS ORDERED: Potassium Bicarbonate/Citrate 20 MEQ Effervescent TAB PO ONE (10:45)
--- NOTE | 2024-04-29 13:19 | NUR ---
16F catheter placed. Pericare provided before and after removal. Patient tolerated well. 10ml sterile water in balloon. Call light within reach
[2024-04-29] MEDS ORDERED: predniSONE 20 MG TAB PO SCH (15:30)
--- NOTE | 2024-04-29 15:38 | NUR ---
soap worker met with pt to check-in. She reports to be doing "the best I can." SW was informed by Director Rachel that pt might get transferred out. Discharge Plan: re-eval vs transfer
[2024-04-29 16:51] VITALS: BP 124/79; PULSE 95; TEMP 97.7
--- NOTE | 2024-04-29 22:05 | NUR ---
Pt. resting in bed upon entry. Administered long-acting insulin per MAR, pt. refused sliding-scale insulin. Per bedside report pt's blood glucose has been "dipping" at night. Shift assessment complete. All findings WNL. Pt. denies pain at this time. Pt. requests minimal interruptions through the night. Otherwise, no requests or complaints. Call light in reach.
--- NOTE | 2024-04-30 04:30 | NUR ---
During rounding pt. denied pain but stated she felt pressure in her bladder and asked if her burger was draining. This nurse adjusted the pt's burger tubing and was able to drain approximately 100 cc of harman colored urine. Bladder scan showed there was still at least 434 cc of urine remaining. RN assisted w/ adjusting tubing. Drained a large amount of urine w/ adjustment. Emptied 500 cc of clear harman colored urine.
[2024-04-30 04:44] VITALS: BP 121/76; PULSE 97; TEMP 97.8
--- NOTE | 2024-04-30 07:02 | NUR ---
Pt. had uneventful night. Ambulates w/ X1 assist, walker, and gait belt. Estes catheter to dependent drainage w/ securement device in place; draining harman urine. Pt. denies pain. No request at this time.
--- NOTE | 2024-04-30 08:34 | NUR ---
PT RESTING IN BED. ALERT AND ORIENTEDX4. NO COMPLAINTS OF PAIN AT THIS TIME. ASSESSED PT. IJ FLUSHES AND DRAWS BACK BLOOD. GAVE MORNING MEDS. NO OTHER COMPLAINTS. WAITING ON BED AT OR [facility] FOR TRANSFER. CALL LIGHT MARY GOODSON.
[2024-04-30 17:00] VITALS: BP 128/87; PULSE 102; TEMP 98.1
--- NOTE | 2024-04-30 19:05 | NUR ---
PATIENT SITTING UP IN WHEELCHAIR TALKING WITH FAMILY MEMBERS WITH TV ON WITH NO ACUTE DISTRESS NOTED. PATIENT ON ROOM AIR. TRIPPLE LUMEN CENTRAL LINE TO RIGHT IJ INTACT WITH NO COMPLICATIONS NOTED. WARD CATHETER INTACT, PATENT, AND DRAINING CLEAR YELLOW URINE. BEDSIDE SHIFT REPORT COMPLETED WITH VALERIANO AT THIS TIME.
--- NOTE | 2024-04-30 21:50 | NUR ---
PATIENT RESTING IN BED WITH TV ON WITH NO FAMILY PRESENT WITH NO ACUTE DISTRESS NOTED. PATIENT ON ROOM AIR. TRIPPLE LUMEN CENTRAL LINE TO RIGHT IJ INTACT WITH NO COMPLICATIONS NOTED. WARD CATH INTACT, PATENT, AND DRAINING CLEAR YELLOW URINE. ASSESSMENT AND MEDICATION ADMINISTRATION COMPLETED AT THIS TIME. PATIENT TOLERATED WELL. PATIENT DENIES ANY NEEDS. BED IN LOW POSITION WITH WHEELS LOCKED WITH RAILS UP X3 AND CALL LIGHT WITHIN REACH. BED ALARM ON.
[2024-05-01 05:35] VITALS: BP 135/85; PULSE 93; TEMP 97.5
[2024-05-01 07:11] LABS: ALBUMIN 2.4 g/dL (3.4-4.8); BILIRUBIN,TOTAL 0.3 mg/dL (0.2-1.2); CALCIUM 8.6 mg/dL (8.4-10.2); CREATININE, serum 0.48 mg/dL (0.57-1.11); MAGNESIUM 1.8 mg/dL (1.6-2.6); POTASSIUM 3.7 mEq/L (3.5-4.5); TOTAL PROTEIN 5.3 g/dl (6.2-8.1)
--- NOTE | 2024-05-01 07:33 | NUR ---
PT RESTING IN BED, ALERT AND ORIENTEDX4. NO COMPLAINTS OF PAIN AT THIS TIME. ASSESSED PT. FLUSHED CENTRAL LINE PORTS. ALL 3 FLUSH WELL AND DRAW BACK. SAT PT UP TO EAT BREAKFAST. GAVE MORNING MEDS. NO OTHER COMPLAINTS AT THIS TIME. CALL LIGHT WITHIN REACH.
[2024-05-01 17:38] VITALS: BP 121/75; PULSE 81; TEMP 97.8
--- NOTE | 2024-05-01 20:00 | NUR ---
PATIENT IS A&O AND RESTING UP IN BED. NO COMPLAINTS. HEAD TO TOE ASSESSMENT COMPLETE. HS MEDS GIVEN. RIGHT IJ FLUSHED AND GOOD BLOOD RETURN NOTED. WARD TO DD. SCD'S TO BLE. NO OTHER NEEDS AT THIS TIME. CALL LIGHT IN REACH.
[2024-05-02 05:48] VITALS: BP 144/80; PULSE 90; TEMP 97.4
[2024-05-02] MEDS ORDERED: Iohexol 300 - 100 ML VIAL IV ONE (14:40)
[2024-05-02] MEDS ORDERED: NS 100 ML IV SCH (14:41)
--- NOTE | 2024-05-02 15:30 | NUR ---
Admission QIM scores were reviewed by the team. Code of 3 chosen for toileting hygiene was determined by team discussion to be the most usual performance for this patient during the discharge assessment period. Code of 88 chosen for shower/bathe self was determined by team discussion to be the most usual performance before interventions for this patient during the assessment period. Code of2 chosen for putting on/taking off footwear was determined by team discussion to be the most usual performance before interventions for this patient during the assessment period. Code of 2 chosen for sit to lying was determined by team discussion to be the most usual performance before interventions for this patient during the assessment period. Code of 2 chosen for lying to sitting side of bed was determined by team discussion to be the most usual performance before interventions for this patient during the assessment period. Code of 3 chosen for sit to stand was determined by team discussion to be the most usual performance for this patient during the discharge assessment period. Code of 3 chosen for chair to bed was determined by team discussion to be the most usual performance for this patient during the discharge assessment period. Code of 3 chosen for walking 10 feet was determined by team discussion to be the most usual performance for this patient during the discharge assessment period. Code of 3 chosen for walking 50 feet w/ 2 turns was determined by team discussion to be the most usual performance before interventions for this patient during the discharge assessment period. Code of 88 chosen for walking 150 feet was determined by team discussion to be the most usual performance before interventions for this patient during the assessment period.--Rachel Rubalcava,
[2024-05-02 17:13] VITALS: BP 124/76; PULSE 77; TEMP 97.7
--- NOTE | 2024-05-02 20:00 | NUR ---
Assessment complete. A&Ox3. Denies pain/nausea/shortness of breath. VS have remained stable. Right IJ central line flushes without difficulty-no s/s of infection noted. All three ports flushed well. Estes cath with clear yellow urine. Plan of care discussed for this shift to include meds/pain control/calling for questions/concerns. Verbalizes understanding. Call light in reach. Will monitor.
--- NOTE | 2024-05-03 02:11 | NUR ---
Resting eyes closed. No s/s of pain or discomfort noted. Will monitor.
--- NOTE | 2024-05-03 05:11 | NUR ---
AM labs drawn from right IJ. Good blood return/flushes without difficulty. Denies pain/nausea/shortness of breath. VS have remained stable. Repositioned in bed with pillow support. Estes cath with clear yellow urine. Denies current needs. Call light in reach. WIll monitor.
[2024-05-03 05:40] VITALS: BP 134/77; PULSE 75; TEMP 97.7
[2024-05-03 06:33] LABS: BASO % 0.1 % (0.0-2.0); GRAN # 8.5 K/mm3 (1.4-6.5); GRAN % 75.4 % (42.2-75.2); HEMOGLOBIN 12.5 g/dl (12.5-16.0); LYMPH # 1.9 K/mm3 (1.2-3.4); LYMPH % 16.7 % (20.0-51.0); MEAN CELL VOLUME 86 fl (80.0-100.0); MEAN CORPUSCULAR HEMOGLOBIN 29 pg (27-31); MEAN CORPUSCULAR HGB CONC 34 g/dl (33.0-37.0); MEAN PLATELET VOLUME 9.5 fl (7.4-10.4); MONO # 0.8 K/mm3 (0.1-0.6); MONO % 7.1 % (1.7-9.3); PLATELET COUNT 354 K/mm3 (130-400); RED BLOOD COUNT 4.27 M/mm3 (4.10-5.30); REDCELL DISTRIBUTION WIDTH-CV 13.2 % (11.5-14.5)
--- NOTE | 2024-05-03 06:34 | NUR ---
Patient had an uneventful night. Denied nausea/shortness of breath. Denied pain but stated she felt much weaker. Was repositioned in bed with pillow support. Stated she couldnt lift her head/shoulders alone-assisted with change in bed clothes. Estes cath with clear yellow urine. Denies current needs. Call light in reach. Will monitor.
[2024-05-03 06:40] LABS: HEMATOCRIT 36.9 % (37.0-47.0)
--- NOTE | 2024-05-03 06:44 | NUR ---
Bedside report given to MARION Dubose
[2024-05-03 07:10] LABS: ALBUMIN 2.5 g/dL (3.4-4.8); BILIRUBIN,TOTAL 0.3 mg/dL (0.2-1.2); CALCIUM 8.8 mg/dL (8.4-10.2); CREATININE, serum 0.53 mg/dL (0.57-1.11); MAGNESIUM 1.9 mg/dL (1.6-2.6); TOTAL PROTEIN 5.3 g/dl (6.2-8.1)
--- NOTE | 2024-05-03 10:46 | NUR ---
ASSESSMENT COMPLETED EARLIER THIS AM. PT IS ALERT AND ORIENTED. SHE IS WATCHING TV AND EATING BREAKFAST. MEDICATIONS ADMINISTERED PER EMAR. ALL PORTS FLUSHED WITH BLOOD RETURN NOTED ON ALL THREE. PT ASKED ME TO COMB HER HAIR. SHE STATES THAT SHE IS FEELING BETTER AND IS NOT WEAK THIS MORNING. CALL LIGHT IS WITHIN REACH, NO OTHER CONCERNS AT THIS TIME.
--- NOTE | 2024-05-03 10:56 | NUR ---
PATIENT ALERT AND ORIENTED X4. VSS. PATIENT HERE FOR DEBILITY. PATIENT DENIES ANY PAIN. WARD TO DD WITH DEVENDRA OUTPUT. RIJ TLC WITH TEGADERM INTACT, ALL FLUSH WITH GOOD BLOOD RETURN. PATIENT UP IN BED WAITING ON BREAKFAST. NO FURTHER NEEDS. CALL LIGHT IN REACH. BED ALARM ON.
--- NOTE | 2024-05-03 13:16 | NUR ---
SW met briefly with patient to check in. Patient denies any needs at this time. Patient feeling like she is making progress with therapy. Discussed need to schedule family meeting pending decision from physician of patient possible transfer. SW will continue to follow.
[2024-05-03 16:41] VITALS: BP 124/78; PULSE 80; TEMP 97.7
[2024-05-03 19:00] VITALS: BP_SYST 124
--- NOTE | 2024-05-03 21:32 | NUR ---
Patient assessed around 2034. Alert and oriented, and able to make needs known. Denies having pain and discomfort. TLC to right IJ. Denies SOB and dyspnea. LS CTA. HRR. BSAx4. No edema. Indwelling burger catheter patent, draining clear yellow urine via dependent drainage. Voices no questions, needs, or concerns at this time. In bed with call light within reach. Bed alarm on.
[2024-05-04 05:52] VITALS: BP 133/77; PULSE 79; TEMP 97.4
--- NOTE | 2024-05-04 06:30 | NUR ---
Patient has voiced no questions, needs, or concerns this shift. Has denied having pain and discomfort this shift. In bed with call light within reach. Bed alarm on.
[2024-05-04 07:00] VITALS: BP_SYST 133
--- NOTE | 2024-05-04 08:00 | NUR ---
PATIENT A&O X4. VSS. NO C/O PAIN. PATIENT IS ASSIST X1 WITH WALKER AND GB. PATIENT HAS C/O INCREASED SWELLING IN L ANKLE. +1 PITTING EDEMA IN BILATERAL ANKLES. R IJ INTACT AND PATENT. WARD CATHETER IN PLACE AND DRAINING WITH SECUREMENT DEVICE ATTACHED. NO FURTHER NEEDS AT THIS TIME. CALL LIGHT WITHIN REACH.
--- NOTE | 2024-05-04 08:00 | NUR ---
PATIENT IS A&O. VSS. REPORTS PAIN OF 4/10 AND REQUESTING SOMETHING FOR PAIN BEFORE AM THERAPY, GAVE PRN ULTRAM, SEE MAR. NO OTHER COMPLAINTS. HEAD TO TOE ASSESSMENT COMPLETE. BREAKFAST TRAY AT BEDSIDE. AM MEDS GIVEN WITH PUDDING. NO OTHER NEEDS AT THIS TIME. CALL LIGHT IN REACH. BED ALARM ON.
--- NOTE | 2024-05-04 12:29 | NUR ---
SW attended team conference earlier this morning. Discussed patient's current status with therapy and medical concerns of the team. Discharge planning pending progress with therapy and improvement in medical condition. Patient still being considered for transfer to another medical facility. Discharge plan: re-eval
[2024-05-04] MEDS ORDERED: INSLANT SQ (13:15)
[2024-05-04] MEDS ORDERED: PREDNISONE20 MG PO (13:15)
[2024-05-04] MEDS ORDERED: INSULIN AS100 UNIT/2 SQ (13:15)
[2024-05-04 17:24] VITALS: BP 133/77; PULSE 79; TEMP 97.4
[2024-05-04 18:00] VITALS: BP 128/74; PULSE 81; TEMP 98.2
[2024-05-04 19:00] VITALS: BP_SYST 128
--- NOTE | 2024-05-04 19:12 | NUR ---
ATTEMPTED TO CALL TO GIVE REPORT ON PATIENT 4 TIMES AND NO ANSWER. PASSED THIS ON TO NIGHT NURSE.
--- NOTE | 2024-05-04 21:10 | NUR ---
Transfer Center called this nurse around 1999 for update on patient. This nurse called them back at 2024. Asked updated transfer time, and updated at that time that the time was not known yet. Transfer station requested that this nurse call and give update to [facility]. Asked if they had a different number, as the number we were given was called by day shift multiple times with no answer. Transfer center attempted to call number with no answer. Stated she would call their warehouse forklift operator and have them call this nurse back. corduroy cutting supervisor updated this nurse that transport time would be around 2300. Patient updated. Worried because had been told that [facility] needs a copy of face sheet, insurance, and ID card tonight when she is admitted. Patient has face sheet in transfer packet already. Copies of ID and insurance card put in transfer packet. Patient updated and very thankful. Nurse from [facility] called for report at 2049. This nurse had to call her back, new number received to call report. Report called to RN at [facility] at [phone]. [phone]. Will call them back and give them discharge time.
--- NOTE | 2024-05-04 23:08 | NUR ---
Patient assessed around 2044. Alert and oriented, and able to make needs known. Denies having pain and discomfort. TLC to right IJ. Denies SOB and dyspnea. LS CTA. HRR. BSAx4. No edema. Indwelling burger catheter patent, draining clear yellow urine via dependent drainage. Patient leaving hospital at this time, on her way to [facility]. This nurse called and updated RN at [facility].
== END 2024-05-04 23:05 | disposition short-term general hospital (02) | DRG 557 ==
PROVIDERS: Internal Medicine; ADMIT Physical Medicine & Rehabilitation Sports Medicine
DX: M62.82 Rhabdomyolysis (principal); E11.10 Type 2 diabetes mellitus with ketoacidosis without coma; I21.A1 Myocardial infarction type 2; B17.9 Acute viral hepatitis, unspecified; G72.81 Critical illness myopathy; Z74.09 Other reduced mobility; R26.89 Other abnormalities of gait and mobility; E87.5 Hyperkalemia; R33.9 Retention of urine, unspecified; R00.0 Tachycardia, unspecified; R74.01 Elevation of levels of liver transaminase levels; Z79.4 Long term (current) use of insulin; Z79.85 Long-term (current) use of injectable non-insulin antidiabetic drugs; R13.10 Dysphagia, unspecified
CPT/HCPCS: J1650; J1815; J7512; Q3014; Q9967

== ENCOUNTER 2024-05-10 10:40 | Inpatient (IN) | payer BC ==
[~2024-05-10] VITALS: Ht 160 cm; Wt 64.6 kg
[~2024-05-10 10:40] MED LIST changes: +ASPIRIN E.C. 8181 MG PO; +INSLANT SQ; +INSULIN AS100 UNIT/2 SQ; +PREDNISONE20 MG PO; +TOPROL XL 25MG25 MG PO
[2024-05-10] MEDS ORDERED: Acetaminophen 325 MG TAB PO PRN (14:00)
[2024-05-10] MEDS ORDERED: Sennosides/Docusate 8.6-50 MG TAB PO PRN (14:00)
[2024-05-10] MEDS ORDERED: Naloxone 0.4 MG/ML VIAL IV PRN (14:00)
[2024-05-10] MEDS ORDERED: Polyethylene Glycol 3350 17 GM PDS PO PRN (14:00)
[2024-05-10] MEDS ORDERED: Docusate Sodium 100 MG CAP PO PRN (14:00)
[2024-05-10 14:38] VITALS: BP 131/84; PULSE 102; TEMP 97.4
[2024-05-10 14:49] VITALS: BP_SYST 131
--- NOTE | 2024-05-10 15:02 | NUR ---
PATIENT BROUGHT TO FLOOR AT APPROXIMATELY 1430. PATIENT PRESENTED FROM [facility] WITH WARD TO DD, DEVENDRA OUTPUT. NO IV ACCESS. PATIENT ON RA. PATIENT DENIES ANY PAIN. PATIENT BROUGHT TO ROOM AND ORIENTED TO ROOM, POLICIES, AND MEAL TIMES. PATIENT REPORTS UNDERSTANDING. INTAKE PERFORMED. SHARONA NOTIFIED OF PATIENT'S PRESENCE. NO FURTHER NEEDS. CALL LIGHT IN REACH. BED ALARM ON.
[2024-05-10] MEDS ORDERED: PREDNISONE20 MG PO (15:48)
[2024-05-10] MEDS ORDERED: Dextrose 50% Water 25 GM/50 ML SYRINGE IV PRN (16:00)
[2024-05-10] MEDS ORDERED: Glucagon 1 MG VIAL IM PRN (16:00)
[2024-05-10] MEDS ORDERED: Dextrose (Glucose) 15 GM (4 x 3.75 GM) Chewable TABLET PACK PO PRN (16:00)
--- NOTE | 2024-05-10 16:50 | NUR ---
PCT MISTAKENLY PERFORMED A QC CHECK WITH GLUCOMETER AND CANNED PATIENT'S WRISTBAND, HAVING BLOOD GLUCOSE READ AT 211. PATIENT'S REAL BLOOD GLUCOSE WAS 174, THEREFORE, PATIENT WOULD NOT NEED INSULIN AT THIS TIME.
[2024-05-10] MEDS ORDERED: Insulin Lispro (HumaLOG) SQ SCH (17:00)
[2024-05-10 17:24] VITALS: BP 110/70; PULSE 106; TEMP 97.7
[2024-05-10 18:00] VITALS: BP 110/70; PULSE 106; TEMP 97.7
[2024-05-10 19:31] VITALS: BP_SYST 110
--- NOTE | 2024-05-10 19:32 | NUR ---
RECEIVED CHANGE OF SHIFT REPORT FROM DAY SHIFT NURSE.
[2024-05-10] MEDS ORDERED: Insulin Glargine-ygfn (Lantus) SQ SCH (21:00)
--- NOTE | 2024-05-11 01:00 | NUR ---
PATIENT TIRES EASILY WHEN UP AMBULATING/ACTIVITY. DENIES CHEST PAIN/SHORTNESS OF BREATH BUT DID REPORT SHE COULD FEEL HER HEART "BEATING FAST" WHEN UP TO BATHROOM X1 DURING THE NIGHT. EXIT ALARMS ON WHEN UP IN CHAIR OR RESTING IN BED. CALL LIGHT WITHIN PATIENT'S REACH DURING THE SHIFT.
[2024-05-11 05:57] VITALS: BP 136/78; PULSE 97; TEMP 97.4
[2024-05-11 06:45] VITALS: BP_SYST 136
--- NOTE | 2024-05-11 07:22 | NUR ---
CHANGE OF SHIFT REPORT GIVEN TO DAY SHIFT NURSE
[2024-05-11] MEDS ORDERED: predniSONE 20 MG TAB PO SCH (09:00)
--- NOTE | 2024-05-11 11:12 | NUR ---
PATIENT ALERT AND ORIENTED X4. VSS. PATIENT HERE FOR DEBILITY/WEAKNESS. WARD TO DD WITH DEVENDRA OUTPUT. PATIENT DENIES ANY PAIN. AM MEDS ADMINISTERED. PATIENT'S APPETITE DECREASED. DR TABOR AWARE, DIETARY AWARE. NO FURTHER NEEDS. CALL LIGHT IN REACH. BED ALARM ON.
[2024-05-11] MEDS ORDERED: Loperamide 2 MG CAP PO PRN (12:15)
[2024-05-11 15:23] LABS: COLLECTION METHOD IN
[2024-05-11 15:34] LABS: PH 5.5 (5.0-8.5); URINE APPEARANCE TURBID (CLEAR/HAZY); URINE BLOOD 3+ (NEGATIVE); URINE COLOR YELLOW (YELLOW); URINE GLUCOSE TRACE (NEGATIVE); URINE KETONE 1+ (NEGATIVE); URINE NITRATE NEGATIVE (NEGATIVE); URINE PROTEIN(semi-quant) 2+ (NEGATIVE)
[2024-05-11 16:00] LABS: URINE WBC 0-2 /hpf (0-2)
[2024-05-11 16:01] LABS: MUCOUS PRESENT (NOT PRESENT); URINE BACTERIA MANY /hpf (NONE SEEN); URINE CALCIUM OXALATE CRYSTAL PRESENT (NOT PRESENT)
[2024-05-11 17:18] VITALS: BP 114/78; BP 123/67; PULSE 105; PULSE 54; TEMP 97.8
--- NOTE | 2024-05-11 18:00 | NUR ---
sheet ironworker attended IPR team conference. Patient is new to IPR. IPR team will re-team next week. SW met with patient and her family members to discuss discharge planning. Patient lives in [place] with her , Matthew, Roverto# [phone]. PCP is Dr. Craft, Pharmacy is [facility]. No issues affording medications at this time. Insurance is BS. No DPOA-HC and not currently interested in completing one. No current DME. Patient reports prior to all hospitalizations she was independent with ADLS. Patient has two steps to get into their home. SW provided a copy of the IPR team conference notes and explained there would be more information next week after they have had more time to work with her. SW explained the IPR process and that they would schedule a family meeting at some point to discuss her progress and potential discharge date. Patient stated she could not wait for that meeting.
--- NOTE | 2024-05-11 18:13 | NUR ---
PATIENT FOUND TO BE AT 86% ON ROOM AIR, PATIENT PUT ON 2LNC, O2 INCREASED TO 94%.
[2024-05-11 19:11] VITALS: BP_SYST 114
--- NOTE | 2024-05-11 23:36 | NUR ---
ASSESSMENT COMPLETED EARLIER. MEDICATIONS ADMINISTERED PER EMAR. PT IS CURRENTLY LAYING IN BED WATCHING TV. DAUGHTER WAS AT BEDSIDE. SHE REPORTS HAVING A COUGH BUT NO SHORTNESS OF AIR. NO COMPLAINTS AT THIS TIME. CALL LIGHT IS WITHIN REACH. BED IN LOWEST POSITION BED ALARMS ON.
--- NOTE | 2024-05-12 01:48 | NUR ---
PT LAYING IN BED ASLEEP. PT IS EASILY AROUSED FROM SLEEP. CALL LIGHT IS WITHIN REACH, BED IS IN LOWEST POSITION, BED ALARM IS ON.
[2024-05-12 05:33] LABS: BASO % 0.2 % (0.0-2.0); EOS # 0.1 K/mm3 (0.0-0.7); EOS % 0.7 % (0.0-4.0); GRAN # 14.6 K/mm3 (1.4-6.5); GRAN % 76.7 % (42.2-75.2); HEMATOCRIT 42.5 % (37.0-47.0); HEMOGLOBIN 14.1 g/dl (12.5-16.0); LYMPH # 3.1 K/mm3 (1.2-3.4); LYMPH % 16.2 % (20.0-51.0); MEAN CELL VOLUME 88 fl (80.0-100.0); MEAN CORPUSCULAR HEMOGLOBIN 29 pg (27-31); MEAN CORPUSCULAR HGB CONC 33 g/dl (33.0-37.0); MEAN PLATELET VOLUME 9.1 fl (7.4-10.4); MONO # 1.1 K/mm3 (0.1-0.6); MONO % 5.8 % (1.7-9.3); PLATELET COUNT 406 K/mm3 (130-400); RED BLOOD COUNT 4.85 M/mm3 (4.10-5.30); REDCELL DISTRIBUTION WIDTH-CV 14.2 % (11.5-14.5)
[2024-05-12 05:34] VITALS: BP 126/76; PULSE 95; TEMP 97.4
[2024-05-12 05:50] LABS: ALBUMIN 2.3 g/dL (3.4-4.8); BILIRUBIN,TOTAL 0.7 mg/dL (0.2-1.2); CALCIUM 8.8 mg/dL (8.4-10.2); CREATININE, serum 0.47 mg/dL (0.57-1.11); POTASSIUM 3.2 mEq/L (3.5-4.5); TOTAL PROTEIN 5.5 g/dl (6.2-8.1)
[2024-05-12 07:00] VITALS: BP 136/72; PULSE 110
--- NOTE | 2024-05-12 07:00 | NUR ---
ENTERED ROOM FOR BEDSIDE REPORT AND NOTICED PT WAS HAVING TROUBLE CLEARING AIRWAY OF PHLEGM. SET HOB UP AND INSTRUCTED PT TO DEEP BREATHE AND COUGH. PT STRUGGLED TO CLEAR PHLEGM STILL. VITALS TAKEN. RT NOTIFIED OF LOW OXYGEN SATURATION. PT WAS ABLE TO EVENTUALLY CLEAR AIRWAY AND OXYGEN SATURATION WENT UP TO 92%. PT A&O X4. NO C/O PAIN.
[2024-05-12] MEDS ORDERED: guaiFENesin ER 1,200 MG **** subs to guaiFENesin 400 MG PO SCH (09:23)
[2024-05-12] MEDS ORDERED: Potassium Bicarbonate/Citrate 20 MEQ Effervescent TAB PO ONE (09:45)
--- NOTE | 2024-05-12 11:00 | NUR ---
PERIPHERAL IV STARTED ON PT BY CHARGE NURSE. IV IN R HAND. IV ANTIBIOTICS RUNNING. PT PLACED ON CONTACT PRECAUTIONS TO RULE OUT C. DIFF. C/O NAUSEA. ZOFRAN ADMINISTERED. PT IS ASSIST X1 WITH WALKER AND GAIT BELT. PT WEAK DURING TRANSFER. CXR COMPLETED. NEW NPO STATUS.
[2024-05-12] MEDS ORDERED: LR 1,000 ML IV SCH (15:45)
[2024-05-12] MEDS ORDERED: Mouth Moisturizer Spray 30 ML BOTTLE PO PRN (15:45)
[2024-05-12 16:33] VITALS: BP 114/77; PULSE 101; TEMP 97.9
[2024-05-12 19:00] VITALS: BP_SYST 114
--- NOTE | 2024-05-12 20:36 | NUR ---
Spoke to JENIFER Holt-patient HS blood sugar is 109 and Lantus 15 units is ordered. New order received to [facility] at this time. Will monitor.
--- NOTE | 2024-05-12 21:00 | NUR ---
Assessment complete. A&Ox4. Denies pain/nausea. Short of breath with activity. Currently NPO due to possible aspiration. Has suction available for sputum. Estes cath with harman colored clear urine. VS stable. Order has been placed for stool specimen but patient has not had any this shift. IV to right [id number] LR@60ml/hr. Plan of care discussed for this shift to include meds/calling for questions/concerns. Verbalizes understanding. Call light in reach. Will monitor.
--- NOTE | 2024-05-13 04:30 | NUR ---
Stool specimen sent to lab at this time.
[2024-05-13 05:19] LABS: CLOSTRIDIUM DIFF A/B POS
[2024-05-13 05:41] VITALS: BP 129/79; PULSE 102; TEMP 97.1
[2024-05-13 05:45] LABS: BASO % 0.3 % (0.0-2.0); EOS % 0.3 % (0.0-4.0); GRAN # 13.1 K/mm3 (1.4-6.5); GRAN % 83.1 % (42.2-75.2); HEMATOCRIT 44.2 % (37.0-47.0); HEMOGLOBIN 14.6 g/dl (12.5-16.0); LYMPH # 1.6 K/mm3 (1.2-3.4); LYMPH % 10.2 % (20.0-51.0); MEAN CELL VOLUME 88 fl (80.0-100.0); MEAN CORPUSCULAR HEMOGLOBIN 29 pg (27-31); MEAN CORPUSCULAR HGB CONC 33 g/dl (33.0-37.0); MEAN PLATELET VOLUME 9.2 fl (7.4-10.4); MONO # 0.9 K/mm3 (0.1-0.6); MONO % 5.7 % (1.7-9.3); PLATELET COUNT 347 K/mm3 (130-400); REDCELL DISTRIBUTION WIDTH-CV 14.4 % (11.5-14.5)
[2024-05-13] MEDS ORDERED: Insulin Lispro (HumaLOG) SQ SCH ×2 (06:00→08:00)
--- NOTE | 2024-05-13 06:04 | NUR ---
Patient has remained NPO. Provided with mouth swabs/water to moisten mouth. Denied pain/nausea/shortness of breath. Still having phlegm but using suction to aid in clearance. VS stable. Blood sugars WNL-this AM 72-will pass on report to monitor due to NPO status. Noted to have a positive C DIFF screen this AM. Is already in contact precautions. WIll pass on in report. LR@60ml/hr to right hand 22g-infusing without difficulty. Denies current questions/concerns. Call light in reach. Will monitor.
[2024-05-13 06:12] LABS: CALCIUM 8.4 mg/dL (8.4-10.2); CREATININE, serum 0.54 mg/dL (0.57-1.11); POTASSIUM 3.3 mEq/L (3.5-4.5)
--- NOTE | 2024-05-13 06:29 | NUR ---
Call received from lab that patients AM lab draw glucose is 70. Will pass on in report.
--- NOTE | 2024-05-13 06:52 | NUR ---
YOVANA SCHULTZ LEFT FOR DR TABOR FR CALL BACK. CALL BACK RECIEVED. MD INFORMED PATIENTS BLOOD SUGAR IS 74, LR AT 60CC HR. PATIENT STILL NPO , LONG ACTING INSULIN WAS HELD LAST NIGHT. PATIENT TESTED POSITIVE FOR CDIFF. NO ORAL ANTX INITIATED D/T PATIENT CURRENT NPO STATUS. MD TO REVIEW PATIENT CHART ON ARRIVAL. NO NEW ORDERS AT THIS TIME.
--- NOTE | 2024-05-13 06:52 | NUR ---
Report given to WILSON Valera. This nurse attempted to call Dr Dunlap to update on C Diff results as well as glucose of 70 with NPO status. Message left. Updated Wilson Valera.
[2024-05-13 07:00] VITALS: BP_SYST 129
[2024-05-13] MEDS ORDERED: predniSONE 20 MG TAB PO SCH (09:00)
--- NOTE | 2024-05-13 10:28 | NUR ---
PATIENT TO GO TO SWALLOW EVAL. BAG OF LR COMPLETED. PATIENT IV CONVERTED TO S/L PER MD VORB, WELL ODT ZOFRAN GIVEN. PATIENT DENEIS ANY NEEDS OR COMPLAINTS AT THIS TIME. PATIENT LEAVING UNIT WITH ST AT THIS TIME.
--- NOTE | 2024-05-13 11:29 | NUR ---
Patient pulled -17 for NIF this is consistant with yesterdays measurement.
[2024-05-13] MEDS ORDERED: Vancomycin 125 MG/5 ML Oral Soln 300 ML BOTTLE NG SCH (12:00)
[2024-05-13] MEDS ORDERED: LORazepam 2 MG/ML 1 ML VIAL IV ONE (12:45)
--- NOTE | 2024-05-13 13:11 | NUR ---
[facility].
--- NOTE | 2024-05-13 14:47 | NUR ---
PATIENT TAKEN VIA EMS TO [facility]. PATIENT LEFT AWAKE AND ALERT AND ORIENTED. PATIENTS BELONGINGS WERE TAKEN BY HER FAMILY. [facility] CALLED AND NOTIFIED OF PATIENT LEAVING OF NOW
--- NOTE | 2024-05-13 15:22 | NUR ---
Admission QIM scores were reviewed by the team. Code of 4 chosen for eating was determined by team discussion to be the most usual performance before interventions for this patient during the assessment period. Code of 2 chosen for sit to lying was determined by team discussion to be the most usual performance before interventions for this patient during the assessment period. Code of 2 chosen for lying to sitting side of bed was determined by team discussion to be the most usual performance before interventions for this patient during the assessment period. Code of 2 chosen for sit to stand was determined by team discussion to be the most usual performance for this patient during the discharge assessment period. Code of 2 chosen for chair to bed was determined by team discussion to be the most usual performance for this patient during the discharge assessment period.--Rachel Rubalcava, PD
== END 2024-05-13 14:51 | disposition short-term general hospital (02) | DRG 91 ==
PROVIDERS: Internal Medicine; ADMIT Physical Medicine & Rehabilitation Sports Medicine
DX: G72.9 Myopathy, unspecified (principal); E11.10 Type 2 diabetes mellitus with ketoacidosis without coma; I21.A1 Myocardial infarction type 2; B17.9 Acute viral hepatitis, unspecified; Z74.09 Other reduced mobility; R26.89 Other abnormalities of gait and mobility; R33.9 Retention of urine, unspecified; R00.0 Tachycardia, unspecified; R13.10 Dysphagia, unspecified; R29.810 Facial weakness; R74.01 Elevation of levels of liver transaminase levels; E87.5 Hyperkalemia; Z79.4 Long term (current) use of insulin; Z79.899 Other long term (current) drug therapy; Z79.52 Long term (current) use of systemic steroids; Z79.82 Long term (current) use of aspirin
CPT/HCPCS: A9284; J1650; J1815; J2060; J2543; J7120; J7512